=== PATIENT | male | born 1990 | race African-American/Black ===

== ENCOUNTER 2019-04-08 08:03 | Outpatient (RCR) | payer SELFPAY | END 2019-04-09 | LOC: M OUTALCOH 08:03 | PROVIDERS: ATTEND Psychiatry & Neurology Psychiatry | DX: F12.10 Cannabis abuse, uncomplicated (principal) ==

== ENCOUNTER 2019-05-08 08:49 | Outpatient (RCR) | payer SELFPAY | END 2019-05-10 | LOC: M OUTALCOH 08:49 | PROVIDERS: ATTEND Psychiatry & Neurology Psychiatry | DX: F12.10 Cannabis abuse, uncomplicated (principal) | CPT/HCPCS: 90834; H0050 ==

== ENCOUNTER 2019-06-03 09:00 | Outpatient (RCR) | payer SELFPAY | END 2019-06-09 | LOC: M OUTALCOH 09:00 | PROVIDERS: ATTEND Psychiatry & Neurology Psychiatry | DX: F12.10 Cannabis abuse, uncomplicated (principal) ==

== ENCOUNTER → 2019-10-31 | Outpatient (REF) | payer BC ==
[2019-10-31 10:56] LABS: ALBUMIN 4.3 GM/DL (3.2-5.2); ALT/SGPT 18 U/L (12-78); BILIRUBIN,TOTAL 0.6 MG/DL (0.2-1.0); BLOOD UREA NITROGEN 12 MG/DL (7-18); CALCIUM LEVEL 9.5 MG/DL (8.5-10.1); CARBON DIOXIDE LEVEL 33 MEQ/L (21-32); CHLORIDE LEVEL 105 MEQ/L (98-107); CHOLESTEROL LEVEL 159 MG/DL (<200); CREATININE FOR GFR 0.94 MG/DL (0.70-1.30); FREE T4 0.94 NG/DL (0.76-1.46); GLOMERULAR FILTRATION RATE > 60.0 (>60); GLUCOSE, FASTING 94 MG/DL (70-100); HDL CHOLESTEROL 75 MG/DL (>40); LDL CHOLESTEROL 72 MG/DL (<100); NON-HDL-C 84 MG/DL; POTASSIUM SERUM 3.8 MEQ/L (3.5-5.1); SODIUM LEVEL 142 MEQ/L (136-145); TOTAL PROTEIN 7.6 GM/DL (6.4-8.2); TRIGLYCERIDES LEVEL 58 MG/DL (<150)
[2019-10-31 11:35] LABS: TOTAL 25(OH) VITAMIN D 8.7 NG/ML (30.0-100.0)
[2019-10-31 11:54] LABS: HEMOGLOBIN A1c 5.4 %
[2019-11-04 00:06] LABS: HEPATITIS C QUANTITATION HCV Not Detected IU/mL (.)
== END ==
LOC: M SFHCPLAZ 08:06
PROVIDERS: ATTEND Physician Assistant
DX: Z00.00 Encounter for general adult medical examination without abnormal findings (principal); Z13.29 Encounter for screening for other suspected endocrine disorder; Z13.220 Encounter for screening for lipoid disorders; Z13.1 Encounter for screening for diabetes mellitus; Z86.19 Personal history of other infectious and parasitic diseases

== ENCOUNTER → 2021-02-10 | Outpatient (CLI) | payer BC ==
[2021-02-10 15:59] LABS: HEMATOCRIT 48.7 % (42.0-52.0); HEMOGLOBIN 16.4 g/dl (13.5-17.5); MEAN CORPUSCULAR HEMOGLOBIN 30.6 pg (27.0-33.0); MEAN CORPUSCULAR HGB CONC 33.7 g/dl (32.0-36.5); MEAN CORPUSCULAR VOLUME 90.9 fl (80.0-96.0); PLATELET COUNT, AUTOMATED 159 10^3/uL (150-450); RED BLOOD COUNT 5.36 10^6/uL (4.30-6.10); WHITE BLOOD COUNT 4.7 10^3/uL (4.0-10.0)
[2021-02-10 16:46] LABS: ALBUMIN 3.7 GM/DL (3.2-5.2); ALT/SGPT 22 U/L (12-78); BILIRUBIN,TOTAL 0.3 MG/DL (0.2-1.0); BLOOD UREA NITROGEN 8 MG/DL (7-18); CALCIUM LEVEL 9.2 MG/DL (8.5-10.1); CARBON DIOXIDE LEVEL 33 MEQ/L (21-32); CHLORIDE LEVEL 100 MEQ/L (98-107); CREATININE FOR GFR 1.11 MG/DL (0.70-1.30); GLOMERULAR FILTRATION RATE > 60.0 (>60); GLUCOSE, FASTING 106 MG/DL (70-100); POTASSIUM SERUM 4.4 MEQ/L (3.5-5.1); SODIUM LEVEL 137 MEQ/L (136-145); THYROID STIMULATING HORMONE 0.467 uIU/ML (0.358-3.740); TOTAL PROTEIN 7.2 GM/DL (6.4-8.2)
[2021-02-10 21:09] LABS: VITAMIN B12 LEVEL 413 PG/ML
[2021-02-10 21:10] LABS: FOLATE 15.7 NG/ML
[2021-02-10 21:49] LABS: HIV 1&2 SCREEN CENTAUR NEGATIVE (NEGATIVE)
[2021-02-10 21:51] LABS: HEP C VIRUS AB INDEX SOURCE PT > 11.0 INDEX (0.0-0.8)
== END ==
LOC: M WUC 10:49
DX: Z00.00 Encounter for general adult medical examination without abnormal findings (principal); Z11.4 Encounter for screening for human immunodeficiency virus [HIV]; Z86.19 Personal history of other infectious and parasitic diseases

== ENCOUNTER → 2021-06-24 | Outpatient (REF) | payer BC | LOC: EEVIPCON 16:04 → M LAB REF 16:04 | PROVIDERS: ATTEND Physician Assistant | DX: T63.301A Toxic effect of unspecified spider venom, accidental (unintentional), initial encounter (principal) ==

== ENCOUNTER → 2022-12-29 | Outpatient (CLI) | payer OTHER ==
[2022-12-29 15:49] LABS: HEMOGLOBIN A1c 5.2 % (4.0-6.0)
[2022-12-29 16:07] LABS: ALBUMIN 4.3 G/DL (3.2-5.2); ALKALINE PHOSPHATASE 87 U/L (46-116); ALT/SGPT 54 U/L (7.0-40); AST/SGOT 28 U/L (<34); BILIRUBIN,TOTAL 0.5 MG/DL (0.3-1.2); BLOOD UREA NITROGEN 10 MG/DL (9-23); CARBON DIOXIDE LEVEL 31 MMOL/L (20-31); CHLORIDE LEVEL 104 MMOL/L (98-107); CHOLESTEROL LEVEL 156 MG/DL (<200); CHOLESTEROL RISK RATIO 2.05 (<5); GLOMERULAR FILTRATION RATE > 60.0 (>60); GLUCOSE, FASTING 82 MG/DL (60-100); POTASSIUM SERUM 3.9 MMOL/L (3.5-5.1); SODIUM LEVEL 141 MMOL/L (136-145); TOTAL PROTEIN 7.6 G/DL (5.7-8.2); TRIGLYCERIDES LEVEL 55 MG/DL (<150)
[2022-12-29 16:09] LABS: FOLATE > 24.00 NG/ML (>5.4); VITAMIN B12 LEVEL 355 PG/ML (211-911)
[2022-12-29 16:34] LABS: HIV 1&2 SCREEN CENTAUR NEGATIVE (NEGATIVE)
[2023-01-01 19:07] LABS: HEPATITIS C QUANTITATION 782000 IU/mL (.)
== END ==
LOC: M PLALAB 14:43
PROVIDERS: ATTEND Family Medicine
DX: F19.10 Other psychoactive substance abuse, uncomplicated (principal)

== ENCOUNTER → 2023-03-01 | Outpatient (CLI) | payer OTHER ==
[2023-03-01 16:10] LABS: HEPATITIS B SURFACE ANTIBODY POSITIVE (POSITIVE)
[2023-03-01 16:36] LABS: HIV 1&2 SCREEN NEGATIVE (NEGATIVE)
[2023-03-01 18:45] LABS: GC DNA AMPLIFICATION NEGATIVE (NEGATIVE)
== END ==
LOC: M PLALAB 12:26
PROVIDERS: ATTEND Internal Medicine Infectious Disease
DX: B18.2 Chronic viral hepatitis C (principal); Z11.3 Encounter for screening for infections with a predominantly sexual mode of transmission